=== PATIENT | male | born 1980 | race Caucasian/White ===

== ENCOUNTER 2017-12-10 16:09 | Emergency (ER) | payer OTHER ==
[~2017-12-10] VITALS: Ht 185.4 cm; Wt 108.9 kg
[2017-12-10 16:25] VITALS: BP 132/74
[2017-12-10] MEDS ORDERED: AMOX1TAB61 PO (16:59)
[2017-12-10] MEDS ORDERED: IBUP800T19 PO (16:59)
--- NOTE | 2017-12-10 16:59 | PHYS DOC ---
Adult General Chief Complaint Chief Complaint: salivary problem HPI HPI 37-year-old male patient with history of medical problem or smoking complaining of pain for salivary glands under his tongue since last night with mild pain that getting worse with eating. She denies history of the same problem or injury or history of recent surgery or febrile condition. Patient state the dentist told him to come to emergency room to get antibiotic. Review of Systems Review of Systems Constitutional: Denies fever or chills [] Eyes: Denies change in visual acuity, redness, or eye pain [] HENT: Denies nasal congestion or sore throat [] Respiratory: Denies cough or shortness of breath [] Cardiovascular: No additional information not addressed in HPI [] GI: Denies abdominal pain, nausea, vomiting, bloody stools or diarrhea [] : Denies dysuria or hematuria [] Musculoskeletal: Denies back pain or joint pain [] Integument: Denies rash or skin lesions [] Neurologic: Denies headache, focal weakness or sensory changes [] Endocrine: Denies polyuria or polydipsia [] All other systems were reviewed and found to be within normal limits, except as documented in this note. Physical Exam Physical Exam Constitutional: Well developed, well nourished, no acute distress, non-toxic appearance. [] HENT: Normocephalic, atraumatic, bilateral external ears normal, oropharynx moist, no oral exudates, nose normal, mild edema of bilateral salivary glands under tongue without sign of abscess Eyes: PERRLA, EOMI, conjunctiva normal, no discharge. [] Neck: Normal range of motion, no tenderness, supple, no stridor. [] Cardiovascular:Heart rate regular rhythm, no murmur [] Lungs & Thorax: Bilateral breath sounds clear to auscultation [] EKG EKG [] Radiology/Procedures Radiology/Procedures [] Course & Med Decision Making Course & Med Decision Making discharge: I've spoken with the patient and/or caregivers. I've explained the patient's condition, diagnosis and treatment plan based on information available to me at this time. I've answered the patient's and/or caregivers questions and addressed any concerns. The patient and/or caregivers have a good understanding the patient's diagnosis, condition and treatment plan as can be expected at this point. Vital signs have been stabilized. The patient's condition is stable for discharge from the emergency department. The patient will pursue further outpatient evaluation with her primary care provider or other designated consulting physician as outlined in the discharge instructions. Patient and/or caregivers are agreeable to this plan of care and follow-up instructions have been explained in detail. The patient and/or caregivers have received these instructions in written format and expressed understanding of these discharge instructions. The patient and her caregivers are aware that if any significant change in condition or worsening of symptoms should prompt him to immediately return to this of the closest emergency department. If an emergent department is not readily available I would encourage him to call 911. Dragon Disclaimer Dragon Disclaimer This electronic medical record was generated, in whole or in part, using a voice recognition dictation system. Departure Departure: Impression: Primary Impression: Salivary gland infection Disposition: HOME, SELF-CARE (At 1654) Condition: STABLE Referrals: NON,STAFF (PCP) Patient Instructions: Salivary Gland Infection Additional Instructions: Drink plenty of liquids Follow-up with your primary care physician in 3-5 days Return to ER if not getting better Scripts Ibuprofen (IBUPROFEN) 800 Mg Tablet 1 TAB PO TID, #30 TAB Prov: JOEL HUGGINS MD 12/10/17 Amoxicillin/Potassium Clav (AUGMENTIN 875-125 TABLET) 1 Each Tablet 1 TAB PO BID, #14 TAB Prov: JOEL HUGGINS MD 12/10/17 JOEL HUGGINS MD Dec 10, 2017 16:59
== END 2017-12-10 17:14 | disposition home or self-care (01) ==
LOC: EDBD 16:09 → ER 16:09
DX: K11.20 Sialoadenitis, unspecified (principal)
CPT/HCPCS: 99283